=== PATIENT | male | born 1990 | race Caucasian/White ===

== ENCOUNTER 2022-07-09 16:10 | Emergency (ER) | payer SELFPAY ==
[~2022-07-09] VITALS: Ht 170 cm; Wt 75.0 kg
[2022-07-09] MEDS ORDERED: ACETAMINOPHEN 500 MG TAB (TYLENOL) PO ONE (16:30)
--- NOTE | 2022-07-09 16:45 | ED Head Injury ---
General Chief Complaint: Head/Cervical Problems Stated Complaint: head injury\\lac Nursing Triage Note: PT TO ED W/ C/O HEAD HEAD INJURY UNKNOWN ONSET. REPORTS WAS OUTSIDE IN HIS YARD WHEN INJURY OCCURRED, DENIES KNOWING WHAT HIT HIM OR WHAT HAPPENED. DENIES WITNESSING INJURY. STATES SHE WAS "IN THE ROOM WITH THE BABY." NO OTHER C/O VOICED Source: patient Exam Limitations: no limitations (DESEAN SEAMAN APRN) History of Present Illness Date Seen by Provider: Jul 09, 2022 Time Seen by Provider: 16:31 Initial Comments 31-year-old male presents to the ED with a head injury occurred just prior to arrival. Patient does not know what happened. States that he last remembered that he was working outside on his car, next thing knew he was inside and bleeding from his head. He is currently alert and oriented x4. Denies any recent illnesses, denies any dizziness today. Denies any dizziness now. Is complaining of a headache. Denies chest pain, shortness of air, abdominal pain, nausea, vomiting. Reports a history of a "heart problem." He is unsure what the heart problem is. He does not take any medications. Denies any drug or alcohol use today. (DESEAN SEAMAN APRN) Allergies and Home Medications Allergies Coded Allergies: Penicillins (Verified Allergy, Unknown, 07/09/22) Patient Home Medication List Home Medication List Reviewed: Yes (DESEAN SEAMAN APRN) Review of Systems Review of Systems Constitutional: see HPI (DESEAN SEAMAN APRN) Past Bdawolw-Upsqto-Gxfzia Hx Patient Social History Tobacco Use?: No Use of E-Cig and/or Vaping dev: Yes E-Cig or Vaping type used: Nicotine Use of E-Cig and/or Vaping Nilson: Current Everyday User Substance use?: No Alcohol Use?: No Pt feels they are or have been: No (DESEAN SEAMAN APRN) Past Medical History Surgery/Hospitalization HX: DENIED (DESEAN SEAMAN APRN) Physical Exam Vital Signs Vital Signs - First Documented 07/09/22 16:18 Temp 36.5 Pulse 101 Resp 16 B/P (MAP) 146/98 (114) Pulse Ox 100 (SEA DA SILVA MD) Vital Signs Capillary Refill : Less Than 3 Seconds (DESEAN SEAMAN APRN) Height, Weight, BMI Height: '" Weight: lbs. oz. kg; 25.00 BMI Method: General Appearance: WD/WN, no apparent distress HEENT: PERRL/EOMI, TMs normal Neck: supple, normal inspection Cardiovascular: regular rate, rhythm, no edema, no gallop, no JVD, no murmur Respiratory: lungs clear, normal breath sounds, no respiratory distress, no accessory muscle use Extremities: normal range of motion, normal inspection Psychiatric: alert, oriented x 3 Crainal Nerves: normal hearing, normal speech, PERRL Motor/Sensory: no motor deficit, no sensory deficit Skin: normal color, warm/dry, other (Laceration left side of head) (VALERY SEAMAN APRN) Procedures/Interventions Wound Location: Scalp Other Wound Location Left-sided head, above ear Wound Explored: clean Irrigated w/ Saline (ccs): 200 Staple Repair: Stapler 35W Number of Sutures: 5 (DESEAN SEAMAN APRN) Progress/Results/Core Measures Results/Orders Blood Pressure Mean: 114 Progress Progress Note : Time: 16:45 Progress Note Patient seen and evaluated, resting company in bed, no acute distress. Based on exam and symptoms, work-up initiated including CBC, CMP, EKG. CT head ordered. [address] reviewed. CBC grossly normal, CMP grossly normal, BUN slightly elevated 28, creatinine 1.23, GFR 80. Patient instructed to drink plenty of water. CT head and neck negative for any acute findings. Results discussed with patient. Laceration on left side of head repaired with 5 edgardo. Discharge directions and return precautions provided. (DESEAN SEAMAN APRN) Initial ECG Impression Date: Jul 09, 2022 Initial ECG Impression Time: 17:35 Initial ECG Rate: 71 Initial ECG Rhythm: Normal Sinus Initial ECG Intervals: Normal Initial ECG Impression: Normal Initial ECG Comparisson: No Previous ECG Available (DESEAN SEAMAN APRN) Diagnostic Imaging Diagonstic Imaging: CT Plain Films/CT/US/NM/MRI: c-spine, head Comments [facility], [place] NAME: NADEEN SCOTT MED REC#: [id number] PT STATUS: REG ER : 1990 PHYSICIAN: DESEAN SEAMAN APRN ADMIT DATE: 07/09/22/ER Signed Date of Exam:07/09/22 CT HEAD/CERVICAL SPINE WO PROCEDURE: CT head and CT cervical spine without contrast. TECHNIQUE: Multiple contiguous axial images were obtained through the brain and cervical spine without the use of intravenous contrast. Sagittal and coronal reformations through the cervical spine were then performed. Auto Exposure Controls were utilized during the CT exam to meet ALARA standards for radiation dose reduction. INDICATION: Head and neck injury COMPARISON: None available. FINDINGS: Head: No hyperdense hemorrhage or space-occupying mass. No hydrocephalus or midline shift. No evidence of territorial infarct. Basilar cisterns are patent. Mild asymmetric scalp swelling in the inferior left parietal region. No skull fracture. Mild mucosal thickening in the left maxillary sinus. Other paranasal sinuses are clear. Mastoid air cells are clear. Cervical spine: No acute fracture or traumatic malalignment. No high-grade spinal canal narrowing. Airway is patent. No cervical lymphadenopathy. Visualized thyroid is normal. IMPRESSION: 1. No acute intracranial process or skull fracture. 2. No acute fracture or traumatic malalignment of the cervical spine. Dictated by: Dictated on workstation # [id number] Dict: 07/09/221701 Trans: 07/09/221706 [facility] [id number] Interpreted by: CORINA ELDER MD Electronically signed by: CORINA ELDER MD 07/09/221706 (DESEAN SEAMAN APRN) Departure Impression Primary Impression: Head injury Additional Impressions: Laceration of head Concussion Disposition: 01 HOME, SELF-CARE Condition: Stable Departure-Patient Inst. Decision time for Depature: 18:08 (DESEAN SAEMAN APRN) Patient Instructions: Minor Head Injury, Adult ED Add. Discharge Instructions: Follow-up with primary care provider. Return to the ER in 7 to 14 days to have edgardo removed. You may shower and wash your hair, but do not scrub too hard. Return to the ED if you experience worsening, uncontrolled pain, vision changes, recurrent vomiting, difficulty with normal activities, abnormal behavior, difficulty walking, numbness, weakness, difficulty arousing, change in size of pupils, or any other new, concerning, or worsening symptoms. All discharge instructions reviewed with patient and/or family. Voiced understanding. ATTENDING PHYSICIAN NOTE: I was physically present as attending physician in the emergency department during the care of this patient, but I was not directly involved in the decision making or delivery of care for this patient. (SEA DA SILVA MD) DESEAN SEAMAN APRN Jul 09, 2022 16:45 SEA DA SILVA MD Jul 11, 2022 18:47
--- NOTE | 2022-07-09 17:09 | Diagnostic Imaging Report ---
PROCEDURE: CT head and CT cervical spine without contrast. TECHNIQUE: Multiple contiguous axial images were obtained through the brain and cervical spine without the use of intravenous contrast. Sagittal and coronal reformations through the cervical spine were then performed. Auto Exposure Controls were utilized during the CT exam to meet ALARA standards for radiation dose reduction. INDICATION: Head and neck injury COMPARISON: None available. FINDINGS: Head: No hyperdense hemorrhage or space-occupying mass. No hydrocephalus or midline shift. No evidence of territorial infarct. Basilar cisterns are patent. Mild asymmetric scalp swelling in the inferior left parietal region. No skull fracture. Mild mucosal thickening in the left maxillary sinus. Other paranasal sinuses are clear. Mastoid air cells are clear. Cervical spine: No acute fracture or traumatic malalignment. No high-grade spinal canal narrowing. Airway is patent. No cervical lymphadenopathy. Visualized thyroid is normal. IMPRESSION: 1. No acute intracranial process or skull fracture. 2. No acute fracture or traumatic malalignment of the cervical spine. Dictated by: Dictated on workstation # [id number]
[2022-07-09 17:28] LABS: BASOPHILS % (AUTO) 0 % (0-10); EOSINOPHILS # (AUTO) 0.3 10^3/uL (0.0-0.3); EOSINOPHILS % (AUTO) 3 % (0-10); HEMATOCRIT 42 % (40-54); HEMOGLOBIN 15.2 g/dL (13.3-17.7); LYMPHOCYTES % (AUTO) 20 % (12-44); MEAN CORPUSCULAR HEMOGLOBIN 32 pg (25-34); MEAN CORPUSCULAR HGB CONC 36 g/dL (32-36); MEAN CORPUSCULAR VOLUME 87 fL (80-99); MEAN PLATELET VOLUME 10.7 fL (9.0-12.2); MONOCYTES # (AUTO) 0.5 10^3/uL (0.0-1.0); MONOCYTES % (AUTO) 5 % (0-12); NEUTROPHILS # (AUTO) 7.4 10^3/uL (1.8-7.8); NEUTROPHILS % (AUTO) 72 % (42-75); PLATELET COUNT 294 10^3/uL (130-400); WHITE BLOOD COUNT 10.3 10^3/uL (4.3-11.0)
[2022-07-09 17:44] LABS: ALBUMIN 4.4 GM/DL (3.2-4.5); POTASSIUM 3.9 MMOL/L (3.6-5.0)
[2022-07-09 17:45] LABS: CALCIUM 9.4 MG/DL (8.5-10.1)
[2022-07-09 17:46] LABS: TOTAL PROTEIN 7.2 GM/DL (6.4-8.2)
[2022-07-09 17:48] LABS: BILIRUBIN,TOTAL 0.3 MG/DL (0.1-1.0)
[2022-07-09 17:50] LABS: CREATININE SERUM 1.23 MG/DL (0.60-1.30)
[2022-07-09 18:20] VITALS: BP 139/99
== END 2022-07-09 18:20 | disposition home or self-care (01) ==
LOC: EDUNIT# 16:10 → ER 16:15
DX: S06.0XAA Concussion with loss of consciousness status unknown, initial encounter (principal); S01.01XA Laceration without foreign body of scalp, initial encounter; F17.290 Nicotine dependence, other tobacco product, uncomplicated; R79.89 Other specified abnormal findings of blood chemistry; X58.XXXA Exposure to other specified factors, initial encounter; Y92.096 Garden or yard of other non-institutional residence as the place of occurrence of the external cause
CPT/HCPCS: 36415; 70450; 72125; 80053; 85025; 93005

== ENCOUNTER 2022-07-20 08:31 | Emergency (ER) | payer SELFPAY ==
[~2022-07-20] VITALS: Ht 172 cm; Wt 72.0 kg
== END 2022-07-20 08:42 | disposition home or self-care (01) ==
LOC: EDUNIT# 08:31 → ER 08:33
DX: Z48.02 Encounter for removal of sutures (principal)